=== PATIENT | female | born 1985 | race Caucasian/White ===

== ENCOUNTER 2019-07-11 08:50 | Inpatient (IN) ==
[2019-07-11] MEDS ORDERED: 0.9 % Sodium Chloride 500 ML IVC ONE (08:59)
[2019-07-11 09:36] LABS: Basophils % 0.2 %; Eosinophils % 0.1 %; Hematocrit 47.2 % (35.3-44.9); Hemoglobin 17.3 g/dL (11.5-15.4); Immature Granulocytes % 0.5 % (0-4); Lymphocytes # 1.2 K/mcL (0.6-4.6); Mean Corpuscular HGB Conc 36.7 g/dL (31.6-35.5); Mean Corpuscular Hemoglobin 29.8 pg (28.0-33.3); Mean Corpuscular Volume 81.2 fL (83.0-100.0); Mean Platelet Volume 10.3 fL (9.4-12.4); Monocytes # 0.9 K/mcL (0.0-1.3); Monocytes % 5.6 %; Neutrophils # 14.3 K/mcL (1.6-8.9); Platelet Count 504 K/mcL (140-400); Red Blood Count 5.81 M/mcL (3.82-4.97); Red Cell Distribution Width 10.8 % (11.5-14.5); Segmented Neutrophils % 86.6 %; White Blood Count 16.5 K/mcL (4.3-11.1)
[2019-07-11 09:46] LABS: Bilirubin,Urine Small (Negative); Blood,Urine Negative (Negative); Color,Urine Dark Yellow (Yellow); Glucose,Urine (UA) Normal (Normal); Ketones,Urine Trace mg/dL (Negative); Leukocyte Esterase,Urine Negative (Negative); Nitrite,Urine Negative (Negative); Protein,Urine 30 mg/dL (Neg-Trace); Specific Gravity,Urine 1.018 (1.010-1.025); Urobilinogen,Urine Normal (Normal)
[2019-07-11 09:49] LABS: Bacteria,Urine Many per hpf (None-Few); Squamous Epithelial Cell,Urine Many per lpf (None-Few)
[2019-07-11 09:50] LABS: Clarity,Urine Hazy (Clear)
[2019-07-11] MEDS ORDERED: 0.9 % Sodium Chloride 1,000 ML IVC ONE ×2 (09:50→11:23)
[2019-07-11 09:57] LABS: Acetaminophen < 10 mcg/mL (10-20); Alanine Aminotransferase 161 Units/L (7-52); Albumin 4.6 g/dL (3.5-5.7); Albumin/Globulin Ratio 1.5 (1.1-2.2); Alkaline Phosphatase 164 Units/L (34-104); Aspartate Amino Transferase 62 Units/L (13-39); BUN/Creatinine Ratio 17 (6-26); Bilirubin,Total 1.2 mg/dL (0.3-1.0); Blood Urea Nitrogen 30 mg/dL (6-20); Carbon Dioxide 44 mEq/L (23-29); Chloride 58 mEq/L (98-107); Glucose 163 mg/dL (70-105); Osmolality,Calculated 264 (280-300); Potassium 1.8 mEq/L (3.5-5.1); Salicylate < 2.5 mg/dL (15.0-30.0); Sodium 122 mEq/L (136-145); Total Protein 7.6 g/dL (6.4-8.9); Troponin I < 0.03 ng/mL (< 0.04); eGFR For African Americans 40 (> 60); eGFR For Non-African Americans 33 (> 60)
[2019-07-11 10:04] LABS: Amphetamine Screen,Urine Positive ng/mL (Cutoff=1000); Barbiturate Screen,Urine Negative ng/mL (Cutoff=200); Benzodiazepines Screen,Urine Negative ng/mL (Cutoff=200); Cannabinoid Screen,Urine Negative ng/mL (Cutoff = 50); Cocaine Screen,Urine Negative ng/mL (Cutoff= 300); Opiate Screen,Urine Positive ng/mL (Cutoff=300); Phencyclidine Screen,Urine Negative ng/mL (Cutoff=25)
[2019-07-11 10:07] LABS: Hyaline Casts,Urine Moderate per lpf (None-Few)
[2019-07-11 10:07] LABS: Ethanol < 10 mg/dL (Less than 10)
[2019-07-11 10:09] LABS: Granular Casts,Urine Few per lpf (None Seen); Renal Epithelial Cells,Urine Few per hpf (None-Few)
[2019-07-11 10:13] LABS: ABG Base Excess 24 mEq/L (-2 to 3); ABG HCO3 44 mEq/L (21-27); ABG Oxygen Saturation 97 % (95-98); ABG PCO2 29 mmHg (35-45); ABG PH 7.79 pH Units (7.32-7.45); ABG PO2 65 mmHg (85-104); ABG TCO2 45 mEq/L (20-26)
[2019-07-11] MEDS ORDERED: levoFLOXacin 750 MG/150 ML 750 MG/150 ML BAG IVPB ONE (10:51)
[2019-07-11] MEDS ORDERED: *HR* Midazolam HCl 2 MG/2 ML VIAL IVP ONE (12:44)
[2019-07-11] MEDS ORDERED: Calcium Gluconate 1,000 MG/10 ML VIAL IVP STA ×2 (13:06→13:46)
[2019-07-11 14:15] LABS: VBG Ionized Calcium 0.72 mmol/L (1.15-1.35)
[2019-07-11 14:21] LABS: Calcium 7.7 mg/dL (8.6-10.3); Magnesium 1.7 mg/dL (1.6-2.6); Potassium 2.1 mEq/L (3.5-5.1)
[2019-07-11] MEDS ORDERED: Calcium Chloride 1,000 MG in 0.9 % Sodium Chloride 100 ML IVPB ONE (14:35)
[2019-07-11] MEDS: 0.9 % Sodium Chloride 1,000 ML IVC SCH ×3 (14:36→21:42)
[2019-07-11] MEDS ORDERED: Calcium Gluconate 1gm/50mL 1 GM/50 ML BAG IVPB SCH (15:00)
[2019-07-11 15:28] LABS: VBG HCO3 44 mEq/L (21-27); VBG PCO2 47 mmHg (41-51); VBG PH 7.59 pH Units (7.32-7.42); VBG PO2 79 mmHg (25-50)
[2019-07-11] MEDS: *HR* Heparin 5,000 UNIT/ML VIAL SQ SCH (17:33)
[2019-07-11] MEDS ORDERED: 0.9 % Sodium Chloride 1,000 ML IV ONE (20:18)
[2019-07-11 21:07] LABS: VBG Ionized Calcium 0.83 mmol/L (1.15-1.35)
[2019-07-11 21:30] LABS: Calcium 7.6 mg/dL (8.6-10.3); Magnesium 2.8 mg/dL (1.6-2.6); Potassium 2.1 mEq/L (3.5-5.1)
[2019-07-11] MEDS: Potassium Chloride 40 MEQ/200 ML BAG IVPB PRN (21:41)
[2019-07-11] MEDS: Calcium Gluconate 1gm/50mL 1 GM/50 ML BAG IVPB PRN (21:51)
[2019-07-11 22:30] LABS: ABG Base Excess 17 mEq/L (-2 to 3); ABG HCO3 41 mEq/L (21-27); ABG Oxygen Saturation 96 % (95-98); ABG PCO2 44 mmHg (35-45); ABG PH 7.57 pH Units (7.32-7.45); ABG PO2 73 mmHg (85-104); ABG TCO2 42 mEq/L (20-26)
[2019-07-12] MEDS: 0.9 % Sodium Chloride 1,000 ML IVC SCH ×2 (04:35→08:26)
[2019-07-12 04:41] LABS: Basophils % 0.2 %; Eosinophils % 0.2 %; Hematocrit 36.1 % (35.3-44.9); Immature Granulocytes % 0.3 % (0-4); Lymphocytes # 2.2 K/mcL (0.6-4.6); Mean Corpuscular HGB Conc 36.6 g/dL (31.6-35.5); Mean Corpuscular Hemoglobin 30.8 pg (28.0-33.3); Mean Corpuscular Volume 84.1 fL (83.0-100.0); Mean Platelet Volume 10.2 fL (9.4-12.4); Monocytes # 1.5 K/mcL (0.0-1.3); Monocytes % 10.3 %; Neutrophils # 10.7 K/mcL (1.6-8.9); Platelet Count 278 K/mcL (140-400); Red Blood Count 4.29 M/mcL (3.82-4.97); Red Cell Distribution Width 11.1 % (11.5-14.5); White Blood Count 14.5 K/mcL (4.3-11.1)
[2019-07-12 04:42] LABS: Hemoglobin 13.2 g/dL (11.5-15.4)
[2019-07-12 05:06] LABS: BUN/Creatinine Ratio 19 (6-26); Blood Urea Nitrogen 20 mg/dL (6-20); Calcium 7.3 mg/dL (8.6-10.3); Carbon Dioxide 36 mEq/L (23-29); Chloride 86 mEq/L (98-107); Glucose 102 mg/dL (70-105); Magnesium 2.4 mg/dL (1.6-2.6); Osmolality,Calculated 271 (280-300); Phosphorous 2.4 mg/dL (2.7-4.5); Potassium 2.4 mEq/L (3.5-5.1); Sodium 129 mEq/L (136-145); eGFR For African Americans > 60 (> 60); eGFR For Non-African Americans 59 (> 60)
[2019-07-12] MEDS: *HR* Heparin 5,000 UNIT/ML VIAL SQ SCH ×2 (05:13→17:22)
[2019-07-12] MEDS: Potassium Chloride 40 MEQ/200 ML BAG IVPB PRN ×3 (05:14→15:12)
[2019-07-12 05:59] LABS: VBG Ionized Calcium 0.87 mmol/L (1.15-1.35)
[2019-07-12 06:26] LABS: Adenovirus F 40/41 PCR Not detected (Not detect); Astrovirus PCR Not detected (Not detect); C.difficile Toxin A/B Gene PCR Not detected (Not detect); Campylobacter by PCR Not detected (Not detect); Cryptosporidium by PCR Not detected (Not detect); Cyclospora cayetanensis PCR Not detected (Not detect); E. coli O157 by PCR Not detected (Not detect); Entamoeba histolytica PCR Not detected (Not detect); Enteroaggregative E.coli(EAEC) Not detected (Not detect); Enteropathogenic E.coli(EPEC) Not detected (Not detect); Enterotoxigenic E.coli (ETEC) Not detected (Not detect); Giardia lamblia PCR Not detected (Not detect); Norovirus GI/GII PCR Not detected (Not detect); Plesiomonas shigelloides PCR Not detected (Not detect); Rotavirus A PCR Not detected (Not detect); Salmonella PCR Not detected (Not detect); Sapovirus PCR Not detected (Not detect); Shig/EnteroinvasiveE coli EIEC Not detected (Not detect); Shigalike tox-prod E coli STEC Not detected (Not detect); Vibrio PCR Not detected (Not detect); Vibrio cholerae PCR Not detected (Not detect); Yersinia enterocolitica PCR Not detected (Not detect)
[2019-07-12] MEDS ORDERED: 0.9 % Sodium Chloride 1,000 ML IVC ONE (06:38)
[2019-07-12] MEDS: Calcium Gluconate 1gm/50mL 1 GM/50 ML BAG IVPB PRN ×3 (06:55→15:11)
[2019-07-12 06:57] LABS: ABG Base Excess 11 mEq/L (-2 to 3); ABG HCO3 34 mEq/L (21-27); ABG Oxygen Saturation 96 % (95-98); ABG PCO2 38 mmHg (35-45); ABG PH 7.55 pH Units (7.32-7.45); ABG PO2 72 mmHg (85-104); ABG TCO2 35 mEq/L (20-26)
[2019-07-12] MEDS ORDERED: levoFLOXacin 750 MG/150 ML 750 MG/150 ML BAG IVPB SCH (09:00)
[2019-07-12] MEDS ORDERED: Dexmedetomidine HCl 400 MCG/100 ML MLS IVC ONE (11:49)
[2019-07-12] MEDS: Dexmedetomidine HCl 400 MCG/100 ML MLS IVC SCH ×2 (11:58→18:30)
[2019-07-12] MEDS ORDERED: Haloperidol Lactate 5 MG/ML VIAL IVP ONE (13:17)
[2019-07-12] MEDS: Gabapentin 400 MG CAPSULE PO SCH ×2 (13:28→20:40)
[2019-07-12] MEDS ORDERED: 0.9 % Sodium Chloride 1,000 ML IVC SCH (13:30)
[2019-07-12 14:23] LABS: VBG Ionized Calcium 0.98 mmol/L (1.15-1.35)
[2019-07-12 14:41] LABS: BUN/Creatinine Ratio 17 (6-26); Blood Urea Nitrogen 15 mg/dL (6-20); Calcium 7.6 mg/dL (8.6-10.3); Carbon Dioxide 29 mEq/L (23-29); Chloride 95 mEq/L (98-107); Glucose 95 mg/dL (70-105); Magnesium 1.9 mg/dL (1.6-2.6); Osmolality,Calculated 275 (280-300); Potassium 2.9 mEq/L (3.5-5.1); Sodium 132 mEq/L (136-145); eGFR For African Americans > 60 (> 60); eGFR For Non-African Americans > 60 (> 60)
[2019-07-12] MEDS ORDERED: *HR* LORazepam 2 MG/ML VIAL IVP PRN (15:00)
[2019-07-12 23:21] LABS: VBG Ionized Calcium 1.06 mmol/L (1.15-1.35)
[2019-07-12 23:38] LABS: Magnesium 2.3 mg/dL (1.6-2.6)
[2019-07-13] MEDS: Dexmedetomidine HCl 400 MCG/100 ML MLS IVC SCH (00:04)
[2019-07-13] MEDS: Calcium Gluconate 1gm/50mL 1 GM/50 ML BAG IVPB PRN (00:06)
[2019-07-13 00:20] LABS: BUN/Creatinine Ratio 16 (6-26); Blood Urea Nitrogen 15 mg/dL (6-20); Calcium 7.5 mg/dL (8.6-10.3); Carbon Dioxide 26 mEq/L (23-29); Chloride 101 mEq/L (98-107); Glucose 87 mg/dL (70-105); Osmolality,Calculated 276 (280-300); Sodium 133 mEq/L (136-145); eGFR For African Americans > 60 (> 60); eGFR For Non-African Americans > 60 (> 60)
[2019-07-13] MEDS: 0.9 % Sodium Chloride 1,000 ML IVC SCH ×3 (03:44→13:25)
[2019-07-13] MEDS: *HR* Heparin 5,000 UNIT/ML VIAL SQ SCH ×2 (05:12→17:12)
[2019-07-13 05:43] LABS: Basophils % 0.4 %; Eosinophils # 0.1 K/mcL (0.0-0.6); Eosinophils % 0.8 %; Hematocrit 34.9 % (35.3-44.9); Hemoglobin 12.5 g/dL (11.5-15.4); Immature Granulocytes % 0.3 % (0-4); Lymphocytes # 2.2 K/mcL (0.6-4.6); Lymphocytes % 29.8 %; Mean Corpuscular HGB Conc 35.8 g/dL (31.6-35.5); Mean Corpuscular Hemoglobin 30.3 pg (28.0-33.3); Mean Corpuscular Volume 84.7 fL (83.0-100.0); Mean Platelet Volume 10.5 fL (9.4-12.4); Monocytes # 0.4 K/mcL (0.0-1.3); Monocytes % 5.5 %; Neutrophils # 4.8 K/mcL (1.6-8.9); Platelet Count 252 K/mcL (140-400); Red Blood Count 4.12 M/mcL (3.82-4.97); Red Cell Distribution Width 11.2 % (11.5-14.5); Segmented Neutrophils % 63.2 %; White Blood Count 7.5 K/mcL (4.3-11.1)
[2019-07-13] MEDS ORDERED: Doxycycline 100 MG in 0.9 % Sodium Chloride Mini Bag 100 ML IVPB SCH (06:00)
[2019-07-13 06:04] LABS: BUN/Creatinine Ratio 16 (6-26); Blood Urea Nitrogen 15 mg/dL (6-20); Calcium 7.8 mg/dL (8.6-10.3); Carbon Dioxide 24 mEq/L (23-29); Chloride 102 mEq/L (98-107); Glucose 100 mg/dL (70-105); Osmolality,Calculated 277 (280-300); Potassium 3.7 mEq/L (3.5-5.1); Sodium 133 mEq/L (136-145); eGFR For African Americans > 60 (> 60); eGFR For Non-African Americans > 60 (> 60)
[2019-07-13] MEDS: Potassium Chloride 40 MEQ/200 ML BAG IVPB PRN (06:41)
[2019-07-13] MEDS: Gabapentin 400 MG CAPSULE PO SCH ×3 (08:00→20:16)
[2019-07-13] MEDS ORDERED: BuPROPion XL (24 HR) 150 MG TABLET PO SCH (09:00)
[2019-07-13] MEDS ORDERED: ALPRAZolam 1 MG TABLET PO SCH (09:00)
[2019-07-13] MEDS ORDERED: Ondansetron 4 MG/2 ML VIAL IVP ONE (09:19)
[2019-07-13] MEDS ORDERED: Ondansetron 4 MG/2 ML VIAL ONE (09:21)
[2019-07-13] MEDS ORDERED: Ondansetron 4 MG/2 ML VIAL IVP PRN ×2 (09:30→12:07)
[2019-07-13] MEDS ORDERED: Metoclopramide 10 MG/2 ML VIAL IVP PRN (09:30)
[2019-07-13 15:36] LABS: BUN/Creatinine Ratio 15 (6-26); Blood Urea Nitrogen 14 mg/dL (6-20); Calcium 8.1 mg/dL (8.6-10.3); Carbon Dioxide 23 mEq/L (23-29); Chloride 99 mEq/L (98-107); Glucose 122 mg/dL (70-105); Magnesium 1.4 mg/dL (1.6-2.6); Osmolality,Calculated 286 (280-300); Phosphorous < 1.0 mg/dL (2.7-4.5); Potassium 3.2 mEq/L (3.5-5.1); Sodium 137 mEq/L (136-145); eGFR For African Americans > 60 (> 60); eGFR For Non-African Americans > 60 (> 60)
[2019-07-13] MEDS ORDERED: Octreotide Acetate (LAR) 30 MG KIT IM ONE (16:00)
[2019-07-13] MEDS: ALPRAZolam 1 MG TABLET PO SCH (20:16)
[2019-07-14] MEDS: 0.9 % Sodium Chloride 1,000 ML IVC SCH (01:47)
[2019-07-14 02:21] LABS: Alanine Aminotransferase 67 Units/L (7-52); Albumin 3.1 g/dL (3.5-5.7); Albumin/Globulin Ratio 1.6 (1.1-2.2); Alkaline Phosphatase 87 Units/L (34-104); Aspartate Amino Transferase 76 Units/L (13-39); BUN/Creatinine Ratio 9 (6-26); Bilirubin,Total 0.4 mg/dL (0.3-1.0); Blood Urea Nitrogen 8 mg/dL (6-20); Calcium 7.3 mg/dL (8.6-10.3); Carbon Dioxide 25 mEq/L (23-29); Chloride 104 mEq/L (98-107); Glucose 115 mg/dL (70-105); Magnesium 1.3 mg/dL (1.6-2.6); Osmolality,Calculated 287 (280-300); Phosphorous 2.9 mg/dL (2.7-4.5); Potassium 3.2 mEq/L (3.5-5.1); Sodium 139 mEq/L (136-145); Total Protein 5.1 g/dL (6.4-8.9); eGFR For African Americans > 60 (> 60); eGFR For Non-African Americans > 60 (> 60)
[2019-07-14] MEDS: *HR* Heparin 5,000 UNIT/ML VIAL SQ SCH (05:33)
[2019-07-14] MEDS ORDERED: BuPROPion XL (24 HR) 150 MG TABLET PO SCH (09:00)
[2019-07-14] MEDS: Gabapentin 400 MG CAPSULE PO SCH ×2 (09:09→15:23)
[2019-07-14] MEDS: ALPRAZolam 1 MG TABLET PO SCH (09:09)
[2019-07-14 14:51] VITALS: BP 138/94
[2019-07-14] MEDS: Calcium Gluconate 1gm/50mL 1 GM/50 ML BAG IVPB SCH ×2 (15:24→16:25)
[2019-07-14 16:12] LABS: Thyroid Stimulating Hormone 2.836 mcIU/mL (0.340-5.600)
== END 2019-07-14 17:50 | disposition home or self-care (01) | DRG 640 ==
LOC: EMEROOARM 08:50 → ICNU 11:05 → 3ANU 07-13 11:52 → UNDODISIN 07-14 17:50
PROVIDERS: ADMIT Family Medicine; ATTEND Family Medicine

== ENCOUNTER 2020-01-30 22:36 | Inpatient (IN) ==
[2020-01-30 23:06] LABS: Basophils % 0.2 %; Eosinophils # 0.1 K/mcL (0.0-0.6); Eosinophils % 0.5 %; Hematocrit 45.5 % (35.3-44.9); Hemoglobin 16.7 g/dL (11.5-15.4); Immature Granulocytes % 0.3 % (0-4); Lymphocytes # 3.2 K/mcL (0.6-4.6); Mean Corpuscular HGB Conc 36.7 g/dL (31.6-35.5); Mean Corpuscular Hemoglobin 30.6 pg (28.0-33.3); Mean Corpuscular Volume 83.5 fL (83.0-100.0); Mean Platelet Volume 9.8 fL (9.4-12.4); Monocytes # 1.9 K/mcL (0.0-1.3); Monocytes % 10.8 %; Neutrophils # 12.3 K/mcL (1.6-8.9); Platelet Count 662 K/mcL (140-400); Red Blood Count 5.45 M/mcL (3.82-4.97); Red Cell Distribution Width 11.9 % (11.5-14.5); Segmented Neutrophils % 70.2 %; White Blood Count 17.6 K/mcL (4.3-11.1)
[2020-01-30] MEDS ORDERED: *HR* LORazepam 2 MG/ML VIAL IVP ONE (23:06)
[2020-01-30] MEDS ORDERED: 0.9 % Sodium Chloride 1,000 ML IVC ONE ×2 (23:08→23:53)
[2020-01-30 23:14] LABS: INR 1.1; Prothrombin Time 12.2 Seconds (9.4-12.1)
[2020-01-30 23:17] LABS: Activated Partial Thrombo Time 25.5 Seconds (26.0-36.0)
[2020-01-30 23:34] LABS: Alanine Aminotransferase 104 Units/L (7-52); Albumin 4.5 g/dL (3.5-5.7); Albumin/Globulin Ratio 1.4 (1.1-2.2); Alkaline Phosphatase 167 Units/L (34-104); Aspartate Amino Transferase 72 Units/L (13-39); BUN/Creatinine Ratio 28 (6-26); Bilirubin,Direct 0.2 mg/dL (0.0-0.2); Bilirubin,Indirect 0.4 mg/dL (0.0-1.0); Bilirubin,Total 0.6 mg/dL (0.3-1.0); Blood Urea Nitrogen 47 mg/dL (6-20); Carbon Dioxide 43 mEq/L (23-29); Chloride 65 mEq/L (98-107); Creatine Kinase 409 Units/L (30-223); Ethanol < 10 mg/dL (Less than 10); Globulin 3.2 g/dL (2.4-3.5); Glucose 188 mg/dL (70-105); Osmolality,Calculated 279 (280-300); Potassium 2.9 mEq/L (3.5-5.1); Sodium 126 mEq/L (136-145); Total Protein 7.7 g/dL (6.4-8.9); Troponin I < 0.03 ng/mL (< 0.04); eGFR For African Americans 43 (> 60); eGFR For Non-African Americans 36 (> 60)
[2020-01-30 23:39] LABS: Bilirubin,Urine Negative (Negative); Blood,Urine Negative (Negative); Clarity,Urine Clear (Clear); Color,Urine Yellow (Yellow); Glucose,Urine (UA) Normal (Normal); Ketones,Urine Trace mg/dL (Negative); Leukocyte Esterase,Urine Negative (Negative); Nitrite,Urine Negative (Negative); Protein,Urine 100 mg/dL (Neg-Trace); Specific Gravity,Urine 1.025 (1.010-1.025); Urobilinogen,Urine Normal (Normal)
[2020-01-30 23:48] LABS: Thyroid Stimulating Hormone 4.752 mcIU/mL (0.340-5.600)
[2020-01-30 23:49] LABS: Amphetamine Screen,Urine Positive ng/mL (Cutoff=1000); Barbiturate Screen,Urine Negative ng/mL (Cutoff=200); Benzodiazepines Screen,Urine Negative ng/mL (Cutoff=200); Cannabinoid Screen,Urine Negative ng/mL (Cutoff = 50); Cocaine Screen,Urine Negative ng/mL (Cutoff= 300); Opiate Screen,Urine Negative ng/mL (Cutoff=300); Phencyclidine Screen,Urine Negative ng/mL (Cutoff=25); Squamous Epithelial Cell,Urine Moderate per hpf (None-Few)
[2020-01-31] MEDS ORDERED: Ampicillin/Sulbactam 1,500 MG in 0.9 % Sodium Chloride Mini Bag 100 ML IVPB ONE (00:06)
[2020-01-31 00:24] LABS: Adenovirus Not Detected (Not Detect); Bordetella Pertussis Not Detected (Not Detect); Chlamydophila pneumoniae Not Detected (Not Detect); Coronavirus 229E Not Detected (Not Detect); Coronavirus HKU1 Not Detected (Not Detect); Coronavirus NL63 Not Detected (Not Detect); Coronavirus OC43 Not Detected (Not Detect); Human Metapneumovirus Not Detected (Not Detect); Human Rhinovirus/Enterovirus Not Detected (Not Detect); Influenza A Subtype 2009 H1 Not Detected (Not Detect); Influenza B Not Detected (Not Detect); Mycoplasma pneumoniae Not Detected (Not Detect); Parainfluenza Virus 1 Not Detected (Not Detect); Parainfluenza Virus 2 Not Detected (Not Detect); Parainfluenza Virus 3 Not Detected (Not Detect); Parainfluenza Virus 4 Not Detected (Not Detect); Respiratory Syncytial Virus Not Detected (Not Detect); SARS-CoV-2 Not Detected (Not Detect)
[2020-01-31] MEDS ORDERED: *HR* LORazepam 2 MG/ML VIAL ONE ×2 (01:27→02:26)
[2020-01-31] MEDS ORDERED: *HR* LORazepam 2 MG/ML VIAL IVP ONE ×3 (01:27→12:30)
[2020-01-31] MEDS ORDERED: Naloxone 0.4 MG/ML INJ IVP PRN (02:44)
[2020-01-31] MEDS ORDERED: 0.9 % Sodium Chloride 1,000 ML IVC SCH (02:45)
[2020-01-31] MEDS ORDERED: *HR* LORazepam 2 MG/ML VIAL IVP PRN (03:40)
[2020-01-31 04:26] LABS: Basophils % 0.1 %; Eosinophils % 0.1 %; Hemoglobin 15.6 g/dL (11.5-15.4); Immature Granulocytes % 0.4 % (0-4); Lymphocytes # 1.2 K/mcL (0.6-4.6); Lymphocytes % 7.2 %; Mean Corpuscular HGB Conc 35.5 g/dL (31.6-35.5); Mean Corpuscular Hemoglobin 30.5 pg (28.0-33.3); Mean Corpuscular Volume 85.9 fL (83.0-100.0); Mean Platelet Volume 9.7 fL (9.4-12.4); Monocytes # 1.3 K/mcL (0.0-1.3); Monocytes % 7.8 %; Neutrophils # 14.6 K/mcL (1.6-8.9); Platelet Count 493 K/mcL (140-400); Red Blood Count 5.12 M/mcL (3.82-4.97); Red Cell Distribution Width 11.9 % (11.5-14.5); Segmented Neutrophils % 84.4 %; White Blood Count 17.2 K/mcL (4.3-11.1)
[2020-01-31 04:55] LABS: Albumin 4.3 g/dL (3.5-5.7); Albumin/Globulin Ratio 1.4 (1.1-2.2); Bilirubin,Total 0.6 mg/dL (0.3-1.0); Globulin 3.1 g/dL (2.4-3.5); Potassium 2.8 mEq/L (3.5-5.1); Total Protein 7.4 g/dL (6.4-8.9)
[2020-01-31] MEDS: 0.9 % Sodium Chloride 1,000 ML IVC SCH ×4 (06:03→20:32)
[2020-01-31] MEDS: *HR* Heparin 5,000 UNIT/ML VIAL SQ SCH ×2 (06:05→16:28)
[2020-01-31] MEDS ORDERED: levoFLOXacin 750 MG/150 ML 750 MG/150 ML BAG IVPB SCH (09:00)
[2020-01-31 09:10] LABS: VBG HCO3 37 mEq/L (21-27); VBG Ionized Calcium 0.81 mmol/L (1.15-1.35); VBG PCO2 43 mmHg (41-51); VBG PH 7.55 pH Units (7.32-7.42); VBG PO2 77 mmHg (25-50)
[2020-01-31 09:20] LABS: BUN/Creatinine Ratio 30 (6-26); Blood Urea Nitrogen 34 mg/dL (6-20); Calcium 8.5 mg/dL (8.6-10.3); Carbon Dioxide 34 mEq/L (23-29); Chloride 82 mEq/L (98-107); Creatine Kinase 839 Units/L (30-223); Glucose 147 mg/dL (70-105); Magnesium 1.5 mg/dL (1.6-2.6); Osmolality,Calculated 274 (280-300); Phosphorous 1.7 mg/dL (2.7-4.5); Potassium 3.4 mEq/L (3.5-5.1); Sodium 127 mEq/L (136-145); eGFR For African Americans > 60 (> 60); eGFR For Non-African Americans 56 (> 60)
[2020-01-31] MEDS: Levothyroxine Sodium 100 MCG VIAL IVP SCH (09:26)
[2020-01-31] MEDS: *HR* LORazepam 2 MG/ML VIAL IVP PRN (09:27)
[2020-01-31 09:37] LABS: Prolactin > 200.00 ng/mL (3.80-23.20)
[2020-01-31] MEDS: Dexmedetomidine HCl 400 MCG/100 ML MLS IVC SCH ×2 (11:24→20:30)
[2020-01-31] MEDS ORDERED: levETIRAcetam 1,000 MG in 0.9 % Sodium Chloride 100 ML IVPB ONE (12:28)
[2020-01-31] MEDS: Calcium Gluconate 1gm/50mL 1 GM/50 ML BAG IVPB PRN ×2 (12:52→22:11)
[2020-01-31] MEDS: Ampicillin/Sulbactam 1,500 MG in 0.9 % Sodium Chloride Mini Bag 100 ML IVPB SCH ×3 (12:55→23:07)
[2020-01-31 13:22] LABS: Folate 15.6 ng/mL (3.0-16.0)
[2020-01-31 17:43] LABS: VBG Ionized Calcium 0.88 mmol/L (1.15-1.35)
[2020-01-31 18:03] LABS: BUN/Creatinine Ratio 23 (6-26); Blood Urea Nitrogen 23 mg/dL (6-20); Calcium 8.4 mg/dL (8.6-10.3); Carbon Dioxide 30 mEq/L (23-29); Chloride 91 mEq/L (98-107); Glucose 97 mg/dL (70-105); Magnesium 2.3 mg/dL (1.6-2.6); Osmolality,Calculated 274 (280-300); Potassium 3.4 mEq/L (3.5-5.1); Sodium 130 mEq/L (136-145); eGFR For African Americans > 60 (> 60); eGFR For Non-African Americans > 60 (> 60)
[2020-01-31] MEDS ORDERED: Acetaminophen 325 MG TABLET PO PRN (23:22)
[2020-02-01] MEDS: 0.9 % Sodium Chloride 1,000 ML IVC SCH ×6 (01:11→23:42)
[2020-02-01 04:56] LABS: Hematocrit 34.2 % (35.3-44.9); Mean Corpuscular HGB Conc 34.5 g/dL (31.6-35.5); Mean Corpuscular Hemoglobin 30.5 pg (28.0-33.3); Mean Corpuscular Volume 88.4 fL (83.0-100.0); Mean Platelet Volume 9.7 fL (9.4-12.4); Platelet Count 321 K/mcL (140-400); Red Blood Count 3.87 M/mcL (3.82-4.97); Red Cell Distribution Width 12.1 % (11.5-14.5); White Blood Count 8.9 K/mcL (4.3-11.1)
[2020-02-01 05:00] LABS: Hemoglobin 11.8 g/dL (11.5-15.4)
[2020-02-01 05:04] LABS: VBG Ionized Calcium 0.95 mmol/L (1.15-1.35)
[2020-02-01 05:16] LABS: Alkaline Phosphatase 87 Units/L (34-104); Creatine Kinase 473 Units/L (30-223); Phosphorous 2.1 mg/dL (2.7-4.5); Potassium 3.5 mEq/L (3.5-5.1)
[2020-02-01] MEDS: Calcium Gluconate 1gm/50mL 1 GM/50 ML BAG IVPB PRN ×2 (06:20→23:43)
[2020-02-01] MEDS: Ampicillin/Sulbactam 1,500 MG in 0.9 % Sodium Chloride Mini Bag 100 ML IVPB SCH ×3 (06:35→17:47)
[2020-02-01] MEDS: Dexmedetomidine HCl 400 MCG/100 ML MLS IVC SCH ×3 (07:15→20:13)
[2020-02-01] MEDS: Acetaminophen IV 1,000 MG/100 ML INFUS..BTL IVPB SCH ×4 (07:38→23:45)
[2020-02-01 08:29] LABS: BUN/Creatinine Ratio 20 (6-26); Blood Urea Nitrogen 17 mg/dL (6-20); Calcium 7.4 mg/dL (8.6-10.3); Carbon Dioxide 25 mEq/L (23-29); Chloride 100 mEq/L (98-107); Glucose 91 mg/dL (70-105); Osmolality,Calculated 275 (280-300); Sodium 132 mEq/L (136-145); eGFR For African Americans > 60 (> 60); eGFR For Non-African Americans > 60 (> 60)
[2020-02-01] MEDS: Levothyroxine Sodium 100 MCG VIAL IVP SCH (09:26)
[2020-02-01 20:22] LABS: VBG Ionized Calcium 1.01 mmol/L (1.15-1.35)
[2020-02-01 20:37] LABS: BUN/Creatinine Ratio 20 (6-26); Blood Urea Nitrogen 14 mg/dL (6-20); Calcium 7.7 mg/dL (8.6-10.3); Carbon Dioxide 20 mEq/L (23-29); Chloride 109 mEq/L (98-107); Glucose 110 mg/dL (70-105); Osmolality,Calculated 281 (280-300); Phosphorous 2.6 mg/dL (2.7-4.5); Potassium 3.4 mEq/L (3.5-5.1); Sodium 135 mEq/L (136-145); eGFR For African Americans > 60 (> 60); eGFR For Non-African Americans > 60 (> 60)
[2020-02-01] MEDS: *HR* LORazepam 2 MG/ML VIAL IVP PRN (21:51)
[2020-02-01] MEDS: Vancomycin Oral Soln 125 MG/2.5 ML UDC PO SCH ×2 (21:51→22:15)
[2020-02-02] MEDS: *HR* LORazepam 2 MG/ML VIAL IVP PRN ×4 (00:24→15:57)
[2020-02-02] MEDS: Dexmedetomidine HCl 400 MCG/100 ML MLS IVC SCH ×4 (02:14→20:30)
[2020-02-02] MEDS: Ondansetron 4 MG/2 ML VIAL IVP PRN ×2 (02:15→10:22)
[2020-02-02] MEDS: Melatonin 3 MG TABLET PO SCH ×2 (04:45→20:31)
[2020-02-02] MEDS: Acetaminophen IV 1,000 MG/100 ML INFUS..BTL IVPB SCH ×4 (05:20→20:33)
[2020-02-02] MEDS: 0.9 % Sodium Chloride 1,000 ML IVC SCH ×3 (08:00→20:34)
[2020-02-02 09:01] LABS: Basophils # 0.1 K/mcL (0.0-0.2); Basophils % 0.5 %; Eosinophils # 0.1 K/mcL (0.0-0.6); Eosinophils % 0.5 %; Hematocrit 40.6 % (35.3-44.9); Immature Granulocytes % 0.4 % (0-4); Lymphocytes % 14.8 %; Mean Corpuscular HGB Conc 34.5 g/dL (31.6-35.5); Mean Corpuscular Hemoglobin 29.9 pg (28.0-33.3); Mean Corpuscular Volume 86.8 fL (83.0-100.0); Monocytes # 0.7 K/mcL (0.0-1.3); Monocytes % 5.5 %; Neutrophils # 10.4 K/mcL (1.6-8.9); Platelet Count 332 K/mcL (140-400); Red Blood Count 4.68 M/mcL (3.82-4.97); Red Cell Distribution Width 12.2 % (11.5-14.5); Segmented Neutrophils % 78.3 %; White Blood Count 13.2 K/mcL (4.3-11.1)
[2020-02-02 09:44] LABS: Alanine Aminotransferase 44 Units/L (7-52); Albumin 3.4 g/dL (3.5-5.7); Albumin/Globulin Ratio 1.4 (1.1-2.2); Alkaline Phosphatase 99 Units/L (34-104); Aspartate Amino Transferase 35 Units/L (13-39); BUN/Creatinine Ratio 24 (6-26); Bilirubin,Total 0.4 mg/dL (0.3-1.0); Blood Urea Nitrogen 18 mg/dL (6-20); Calcium 7.8 mg/dL (8.6-10.3); Carbon Dioxide 24 mEq/L (23-29); Chloride 106 mEq/L (98-107); Creatine Kinase 319 Units/L (30-223); Globulin 2.4 g/dL (2.4-3.5); Glucose 124 mg/dL (70-105); Osmolality,Calculated 293 (280-300); Potassium 3.1 mEq/L (3.5-5.1); Sodium 140 mEq/L (136-145); Total Protein 5.8 g/dL (6.4-8.9); eGFR For African Americans > 60 (> 60); eGFR For Non-African Americans > 60 (> 60)
[2020-02-02] MEDS: Levothyroxine Sodium 100 MCG VIAL IVP SCH (09:48)
[2020-02-02] MEDS: levETIRAcetam 250 MG in 0.9 % Sodium Chloride 100 ML IVPB SCH ×2 (10:23→20:29)
[2020-02-02] MEDS: Vancomycin Oral Soln 125 MG/2.5 ML UDC PO SCH ×4 (10:59→20:35)
[2020-02-02 14:22] LABS: VBG Ionized Calcium 0.78 mmol/L (1.15-1.35)
[2020-02-02] MEDS: Calcium Gluconate 1gm/50mL 1 GM/50 ML BAG IVPB PRN (16:47)
[2020-02-03] MEDS: Acetaminophen IV 1,000 MG/100 ML INFUS..BTL IVPB SCH ×4 (00:45→17:04)
[2020-02-03] MEDS: Dexmedetomidine HCl 400 MCG/100 ML MLS IVC SCH (03:53)
[2020-02-03 05:16] LABS: Hematocrit 42.3 % (35.3-44.9); Hemoglobin 14.7 g/dL (11.5-15.4); Mean Corpuscular HGB Conc 34.8 g/dL (31.6-35.5); Mean Corpuscular Hemoglobin 30.1 pg (28.0-33.3); Mean Corpuscular Volume 86.5 fL (83.0-100.0); Mean Platelet Volume 10.5 fL (9.4-12.4); Platelet Count 408 K/mcL (140-400); Red Blood Count 4.89 M/mcL (3.82-4.97); Red Cell Distribution Width 12.3 % (11.5-14.5)
[2020-02-03 05:28] LABS: VBG Ionized Calcium 0.87 mmol/L (1.15-1.35)
[2020-02-03 05:34] LABS: Magnesium 1.6 mg/dL (1.6-2.6); Phosphorous 2.5 mg/dL (2.7-4.5)
[2020-02-03 05:38] LABS: BUN/Creatinine Ratio 18 (6-26); Blood Urea Nitrogen 13 mg/dL (6-20); Calcium 7.8 mg/dL (8.6-10.3); Carbon Dioxide 31 mEq/L (23-29); Chloride 97 mEq/L (98-107); Glucose 118 mg/dL (70-105); Osmolality,Calculated 287 (280-300); Potassium 3.7 mEq/L (3.5-5.1); Sodium 138 mEq/L (136-145); eGFR For African Americans > 60 (> 60); eGFR For Non-African Americans > 60 (> 60)
[2020-02-03] MEDS: Calcium Gluconate 1gm/50mL 1 GM/50 ML BAG IVPB PRN (05:44)
[2020-02-03] MEDS: Ondansetron 4 MG/2 ML VIAL IVP PRN (06:49)
[2020-02-03] MEDS: *HR* LORazepam 2 MG/ML VIAL IVP PRN ×3 (08:36→19:39)
[2020-02-03] MEDS: levETIRAcetam 250 MG in 0.9 % Sodium Chloride 100 ML IVPB SCH (08:41)
[2020-02-03] MEDS: Vancomycin Oral Soln 125 MG/2.5 ML UDC PO SCH ×2 (08:48→12:11)
[2020-02-03] MEDS: Levothyroxine Sodium 100 MCG VIAL IVP SCH (08:48)
[2020-02-03] MEDS: 0.9 % Sodium Chloride 1,000 ML IVC SCH ×2 (08:49→19:24)
[2020-02-03] MEDS ORDERED: Metoclopramide 10 MG/2 ML VIAL IVP SCH (11:00)
[2020-02-03] MEDS ORDERED: Haloperidol Lactate 5 MG/ML VIAL IVP PRN (11:01)
[2020-02-03] MEDS: Ondansetron 4 MG/2 ML VIAL IVP SCH ×2 (11:05→14:27)
[2020-02-03] MEDS ORDERED: Morphine Sulfate 2 MG/ML SYRINGE IVP PRN (15:17)
[2020-02-03 19:34] VITALS: BP 126/88
== END 2020-02-03 19:52 | disposition short-term general hospital (02) | DRG 871 ==
LOC: EMEROOARM 22:36 → 2NNU 22:36
PROVIDERS: ADMIT Internal Medicine; ATTEND Internal Medicine